=== PATIENT | female | born 1985 | race Caucasian/White ===

== ENCOUNTER 2024-10-16 12:35 | Emergency (ER) | payer BC, SELFPAY ==
--- OUTSIDE RECORDS SUMMARY | 2024-10-16 12:38 | XMS_ITS | Clinical Summary ---
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 Gender Identity Not on file Sexual Orientation Not on file Plan of Treatment Health Maintenance Due Date Last Done Comments Cervical Cancer Screening Pa p Smear (Age 30 to 64) Every 3 Years 1986 Annual Physical 1989 Hepatitis C 2004 DTaP, Tdap and Td Vaccines ( 1 - Tdap) 2005 Hepatitis B Vaccines (1 of 3 - 19+ 3-dose series) 2005 Cervical Cancer Screening Pa p with HPV Testing (Age 30 to 64) Every 5 Years 2016 Cervical Cancer Screening with HPV 2016 COVID-19 Vaccine ( - 2023-2 5 season) 2024 Influenza Adult (#1) 2024 HPV Vaccines Aged Out No longer eligi ble based on patient's age to complete this topic Meningococcal B Vaccine Aged Out No l onger eligible based on patient's age to complete this topic Meningococcal Vaccine Aged Out No janee lee ann eligible based on patient's age to complete this topic Pneumococcal Vaccine: Pediat rics (0 to 5 Years) and At-Risk Patients (6 to 64 Years) Aged Out No longer eligible b ased on patient's age to complete this topic RSV Immunizations Under 20 Months Aged Out No longer eligible based on patient's age to complete this topic
--- OUTSIDE RECORDS SUMMARY | 2024-10-16 12:38 | XMS_ITS | Clinical Summary ---
Author Organization [facility] Address [address] [place] [address] Care Team Providers Care Payroll Consultant Name Role Phone Shu Ho MD Primary Care Provider [phone] Source Comments [facility],non-owned Affiliates and Associated Physician Practices is amultiple site organization consisting of ambulatory clinics and hospital sitesin [place], [place], [place] and [place]. This disclosure is being madepursuant to the Care Everywhere program and may not contain all information available regarding this patient. Last updated 18.[facility] Allergies Active Allergy Reactions Criticality Noted Date Comments Tramadol Nausea and/or Vomiting,Dizziness 02/2020 Social History Tobacco Use Types Packs/Day Years Used Date Smoking Tobacco: Never Assessed Sex and Gender Information Value Date Recorded Sex Assigned at Not on file Gender Identity Not on file Sexual Orientation Not on file Plan of Treatment Health Maintenance Due Date Last Done Comments PAP SMEAR 1986 HIV SCREENING 2001 HEPATITIS C SCREENING 08/30/2004 DTAP/TDAP/TD VACCINES (1 - Tdap) 2005 HEPATITIS B VACCINE (1 of 3 - 19+ 3-dose series) 2005 COVID-19 VACCINE ( - 2023-2 5 season) 2024 INFLUENZA VACCINE (#1) 2024 DEPRESSION SCREENING 09/07/2024 ZOSTER VACCINE (1 of 2) 2036 HIB VACCINE Aged Out No longer eligi ble based on patient's age to complete this topic HPV VACCINE Aged Out No longer eligi ble based on patient's age to complete this topic MENINGOCOCCAL (Group B) VACCINE Aged Out No longer eligible based on patient's age to complete this topic MENINGOCOCCAL VACCINE Aged Out No janee lee ann eligible based on patient's age to complete this topic PNEUMOCOCCAL VACCINE Aged Out No long er eligible based on patient's age to complete this topic Care Teams Payroll Consultant Relationship Specialty Start Date End Date Shu Ho MD [address] [phone] PCP - General Internal Medicine 09/12/19
--- OUTSIDE RECORDS SUMMARY | 2024-10-16 12:38 | XMS_ITS | Patient Health Summary ---
Author Organization [facility] Address [address] [facility] [place] [address] Care Team Providers Care Gift Manager Name Role Phone Shu Ho MD Primary Care Provider [phone] Note from [facility],non-owned Affiliates and Associated Physician Practices is amultiple site organization consisting of ambulatory clinics and hospital sitesin [place], [place], [place] and [place]. This disclosure is being madepursuant to the Care Everywhere program and may not contain all information available regarding this patient. Last updated 18.[facility] [employer] Allergies * Tramadol(Nausea and/or Vomiting,Dizziness) Social History Tobacco Use Types Packs/Day Years Used Date Smoking Tobacco: Never Assessed Sex and Gender Information Value Date Recorded Sex Assigned at Not on file Gender Identity Not on file Sexual Orientation Not on file Procedures * SKIN TEST PPD - POINT OF CARE(Performed 09/12/2019) Performed for Encounter for PPD test Results * SKIN TEST PPD - POINT OF CARE (09/12/2019) PPD 0 mm Comment:negative Other MISCELLANEOUS SAMPLE S / Unknown 09/12/2019 Kerry Moura [employer] [employer] [facility] [facility] - POINT OF CARE ORDERABLES Care Teams Gift Manager Relationship Specialty Start Date End Date Shu Ho MD [address] [place] [phone] PCP - General Internal Medicine 09/12/19
--- OUTSIDE RECORDS SUMMARY | 2024-10-16 12:38 | XMS_ITS | Data Portability ---
Author Organization [facility], [address]rology ([place]) Address [address] 4th [place] [address] Assessment Encounter Date Assessment Date Assessment LastModified by Organization Details LastModified Time 01/26/2024 01/26/2024 HISTORY OF PRESE NT ILLNESS: Edna is a 38-year-old [address] Dominique her presents the office today for a followup visit. Her menstrual cycles have been spacing out starting August of 2023 where they will be every 2 to 6 months. [address] saw Dr[address] Dominique for her annual in May, she was counseled on the importance of cycling out every 3 months to decrease her risk of endometrial hyperplasia and cancer. At that time she had a negative urine test, normal TSH, FSH, and prolactin levels. She had gained weight secondary to stress in her life and her father passing away. She has gained 40 pounds since November of 2022. She is sexually active and using condoms. She is not wanting any hormonal intervention and is diligent about using the condoms. We discussed her weight most likely being the cause of a cycle irregularity. She cycled out on Provera 01/03 and her menstrual cycle lasted 7 days. She has had to cycle out on the Provera in May, August, and December. In December prior to the Provera, I did check a quantitative HCG which was negative. She has had a recent TSH level drawn in January which was normal. Her CMP is normal as well as her lipid panel. She does see her primary care provider and nurse practitioner at Dr. Balderas s office. She would like to start back on spironolactone which she had been on in the past and works well for her cystic acne that she gets prior to her menses. She knows to be diligent about using condoms with this as it does cause defects. She is going to discuss with Dr. Balderas starting on Wegovy. It was a conversation they had had several months ago but her insurance did not cover it but since then she has changed insurances. She is trying to drink water, eat healthy, and exercise. REVIEW OF SYSTEMS: CONST: No fevers or chills. RESP: No shortness of breath. CV: No chest pain. GI: No nausea, vomiting, or diarrhea. SKIN: No rash. Reviewed pertinent past medical history, surgical history, family history, social history. No changes except as noted. PHYSICAL EXAMINATION: CONST: No acute distress. ENT: Neck supple, thyroid normal size, no nodules, without lymphadenopathy. RESP: Breathing appears normal. No use of accessory muscles. Clear to auscultation bilaterally. CV: Regular rate and rhythm without murmur. MSK: Extremities appear normal and without edema. SKIN: Warm and dry. No obvious skin lesions seen on exposed areas. PSYCH: Appropriate mood and affect. NEURO: No speech difficulty. Reviewed pertinent diagnostic tests, lab work, and imaging. These were reviewed with the patient. PLAN OF CARE: I am going to go ahead and send in Provera for her to take every 3 months if no menstrual cycle to decrease the risk of endometrial hyperplasia and malignancy. Recommended taking a urine test prior to. Counseled on the importance of using condoms while she is on the spironolactone and possibly starting the Wegovy. Encouraged weight loss, healthy eating, exercise. She is comfortable with this plan of care. [facility] [email or web address] Not available 01/27/2024 07:58:21 05/16/2024 05/16/2024 HISTORY OF PRESE NT ILLNESS: Edna is a 38-year-old [address] Dominique who presents to the office today for her woman's health exam. She is engaged to be in January. She is due for her Pap smear today. She has gained a significant amount of weight due to stress that she has had in her life. She has been working at trying to get her weight off with mindful eating. She is going to be started on a compounded tirzepatide due to her insurance not covering the name brand. This is managed by a physician. Her BMI is 49.86. Her weight has impacted her menstrual cycles to be irregular over the past couple of years where she has to take Provera to induce a menses. She did have a menses on her own this month that lasted a couple of days and light in flow. Her and her significant other prefer to use condoms. She knows the importance as she is on spironolactone 25 mg which could potentially cause defects. She also takes valacyclovir for HSV-2. She is also taking vitamin B and vitamin D. She has a negative depression screen. She has a negative HBOC. She is due for a Pap smear. She has no breast or gynecology complaints today. REVIEW OF SYSTEMS: CONST: No fevers or chills. RESP: No shortness of breath. CV: No chest pain. GI: No nausea, vomiting, or diarrhea. SKIN: No rash. Reviewed pertinent past medical history, surgical history, family history, social history. No changes except as noted. PHYSICAL EXAMINATION: CONST: No acute distress. ENT: Neck supple, thyroid normal size, no nodules, without lymphadenopathy. RESP: Breathing appears normal. No use of accessory muscles. Clear to auscultation bilaterally. CV: Regular rate and rhythm without murmur. GI: Abdomen non-distended, soft and nontender. No hepatosplenomegaly or masses. : Pelvic: No inguinal lymphadenopathy. External genitalia is normal and without lesions. There was no evidence of swelling in the labia. The urethral meatus and urethra are normal. Vagina is without lesions. The cervix is pink and non-friable. No cervical motion tenderness. The uterus is normal size, freely mobile. There is no adnexal enlargement or tenderness noted. Palpation of the bladder revealed no abnormalities. Pap smear collected. BREAST: Symmetric bilaterally. No dimpling of the skin is noted. There are no discrete masses palpated. There is no axillary lymphadenopathy. No retraction of the nipples or nipple discharge noted. MSK: Extremities appear normal and without edema. SKIN: Warm and dry. No obvious skin lesions seen on exposed areas. PSYCH: Appropriate mood and affect. NEURO: No speech difficulty. Reviewed pertinent diagnostic tests, lab work, and imaging. These were reviewed with the patient. PLAN OF CARE: 1. Pap smear guidelines discussed. We will follow up on Pap smear results. 2. Self-breast exam instructions reviewed. 3. Monthly self-breast awareness assessment encouraged. Recommend calling if any changes or concerns. Lifestyle interventions that can help decrease lifetime risk of breast cancer include a low inflammatory diet such as the Mediterranean diet, no smoking, one alcohol beverage a night or less, exercise, and healthy weight BMI less than 25. 4. Healthy diet and exercise was encouraged. 5. Contraceptive options discussed. Pharmaceutical intervention is strongly advised as she is on spironolactone which has been proven to cause defects. She knows to call if she goes 3 months without having a menstrual cycle and we will check a test and the importance of cycling out on the Provera for a withdraw bleed as she can be at increased risk for endometrial hyperplasia or uterine cancer if not having regular menstrual cycles. She is not interested in pharmaceutical intervention at this time. 6. Follow-up with PCP for any non-gynecological issues. 7. She is encouraged to update her non-gynecological preventative screenings and immunizations with her PCP. 8. Patient will return in one year or sooner if needed. cb [email or web address] Not available 05/18/2024 11:48:53 Plan of Treatment Reminders Order Date Submit Date Provider Last Modified By Organization Details Last Modified Time Details Appointments Annual [facility] Visit 30.EST 2024 10:30A M Duran Avila Not available Not available Not available Lab Pap test, slide(s), cervical - LMP 05/09/20242023 024 [id number] [facility], [address] [place] [address], [address], 06/20/2024 09:34:19 Referral None recorded. Procedures None recorded. Surgeries None recorded. Imaging None recorded. Medication Orders None recorded. Patient TargetsNo targets recorded. Patient InstructionsNo instructions recorded. Reason for Referral None Reported. Results Created Date Observation Date Name Description Value Unit Range Abnormal Flag Note LastModifiedBy Organization Detail LastModifiedTime 01/08/20 24 01/08/2024 vitam in D, 25-hy droxy , total , serum vitamin D 25-hydroxy 25 NG/mL 30.0-1 00.0 low vitam in D statu s 25 (oh) vitam in D indra ntrat ion range (NG/m L) ----- ----- ----- - ----- ----- ----- ----- ----- ----- -- defic ient <20 insuf ficie nt 20 to 29 suffi cient 30 to 100 upper safet y limit >100 ----- 25.0 Not Available [facility] - All Sites [address], [place], [address], 09/07/2024 00:16:42 01/08/2001/08/2024 vitam in B12, serum vitamin B12 202 pg/mL >=200 misael l value - great er than 200 pg/mL . indet ermin ate - 160 to 200 pg/mL . defic ient - less than 160 pg/mL . ----- 202 Not Available DO Not Use (Dmoinique Sena) - Testing [address] , [place], [address], 09/07/2024 00:16:42 01/08/20 24 01/08/2024 TSH, serum or plasm a TSH 1.47 uIU/m L 0.45-5 .33 test resul ts must BE inter prete d in the clini renay jem xt of the [facility] nt. the liste d refer ence range IS based on the gener al lyssamj ation ( males and non-p regna nt femal es, aged 21-88 ). refer ence range alicia bustamante on 2017 ----- 1.47 Not Available Harriett Dash MD [address] [place], [address], 09/07/2024 00:16:42 01/08/20 24 01/08/2024 lipid panel , serum cholesterol 146 mg/dL <=199 inter preti ve data for stephanie stero l, serum : <200 mg/dL hao able 200 - 239 mg/dL donna garibayine high >240 mg/dL high ----- 146 Not Available [facility] [address] [facility] , [place], [address], 09/07/2024 00:16:41 01/08/20 24 01/08/2024 lipid panel , serum triglyceride s 118 mg/dL 10-160 the natio nal lipid assoc iatio n and the natio nal stephanie stero l educa tion progr am (ncep ) have set the follo wing guide lines for trigl yceri letty in adult s ages 18 and up: trigl yceri letty (fast ing) misael l: <150 mg/dL borde rline high: 150-1 99 mg/dL high: 200-4 99 mg/dL very high: > or =500 mg/dL ----- 118 Not Available [facility] [address] [facility] [place], [address], 09/07/2024 00:16:41 01/08/20 24 01/08/2024 lipid panel , serum HDL 48 mg/dL 23-92 if HDL IS less than 40 mg/dL for men and less than 50 mg/dL for women , there IS an incre ased risk of heart disea se that IS indep endan t of other risk facto rs. A typic al level of HDL IS betwe en 40 - 50 mg/dL for men and betwe en 50 - 60 mg/dL for women and IS assoc iated with avera ge risk of heart disea se. based on many epide [facility] studi es, HDL of 60 mg/dL or highe r IS assoc iated with less than avera ge risk of heart disea se. ----- 48 Not Available [facility] [address] [facility] [place], [address], 09/07/2024 00:16:41 01/08/20 24 01/08/2024 lipid panel , serum LDL, calculated 74 mg/dL < 100 mg/dL optim al 100-1 29 mg/dL near optim al 130-1 59 mg/dL borde rline high 160-1 89 mg/dL high > or = 190 mg/dL very high ----- 74 Not Available [facility] [address] [facility] [place], [address], 09/07/2024 00:16:41 01/08/20 24 01/08/2024 lipid panel , serum VLDL 24 mg/dL 0-31 Not Available [facility] [address] [place] [address] [place], [address], 09/07/2024 00:16:41 01/08/20 24 01/08/2024 lipid panel , serum chol/HDL 3.04 ch/HD L 0.00-4 .44 Not Available [facility] [address] [facility] [place], [address], 09/07/2024 00:16:41 01/08/20 24 01/08/2024 lipid panel , serum LDL renay. / HDL ratio 1.5 0.0-5. 0 Not Available [facility] [address] [place] [address] [place], [address], 09/07/2024 00:16:41 01/08/20 24 01/08/2024 insul in, serum insulin 6.6 uIU/m L 1.9-23 .0 this test IS not recom yony d for patie nts with a posit juan f insul in autoa ntibo dy. free insul in IS the test of choivioleta e when the patie nt?s anti- insul in IS posit juan f. ----- 6.6 Not Available [facility] [address], [place], [address], 09/07/2024 00:16:40 01/08/2001/08/2024 HbA1c (hemo globi n A1c), blood hemoglobin A1C 5.2 %A1C 4.2-5. 6 refer ence range for HbA1C IS emmett ws: rohit sted diagn osis HbA1C resul t(%) ----- ----- ----- ----- ----- ----- ----- ----- --- diabe tic > or equal to 6.5 predi abete s 5.7 - 6.4 misael l <5.7 refer ence: nancy can diabe ashly assoc iatio n. class ifica tion and diagn osis of diabe ashly. diabe ashly care 2017; 40 (supp lemen t 1): S11-S 24. ----- 5.2 Not Available Test [facility] - Lab [address] [place] [address], [address], 09/07/2024 00:16:40 01/08/20 24 01/08/2024 HbA1c (hemo globi n A1c), blood estimated average glucose 103 mg/dL Not Available Test [facility] - Lab [address] [place] [address], [address], 09/07/2024 00:16:40 01/08/20 24 01/08/2024 GFR, estim ated (eGFR ), serum eGFR 84 mL/mi n/1.7 3m2 this eGFR IS calcu lated using the 2020 CKD-e pi creat inine equat ion witho ut race modif ier. in most healt hy peopl e, the misael l GFR IS 90 mL/mi n/1.7 3 m2 or highe r. A resul t of 60 - 89 mL/mi n/1.7 3 m2 witho ut kidne y damag e may BE misael l in some peopl e (such the elder ly, infan ts). A resul t of 60 - 89 mL/mi n/1.7 3 m2 for three month s or more, along with kidne y damag e (such persi stent prote in in the urine ), means the perso n has early kidne y disea se. when GFR IS <60 for three month s or more, chron ic kidne y disea se(CK D) IS prese nt. ----- 84 Not Available Lab [address], [place], [address], 09/07/2024 00:16:40 01/08/20 24 01/08/2024 corti sanchez, serum or plasm a cortisol 6.4 mcg/d L 8.7-22 .4 low corti sanchez refer ence range s: A.M. speci mens: 8.7 - 22.4 mcg/d L P.M. speci mens: < 10 mcg/d L dexam ethas one suppr essio n test expec neris value s: less than 5.0 mcg/d L cortr osyn (acth ) stimu latio n test: an incre ase of 10 mcg/d L or great er post- stimu latio n IS consi dered a misael l respo nse. ----- 6.4 Not Available [facility] [address], [place], [address], 09/07/2024 00:16:40 01/08/2001/08/2024 CBC w/ auto diff WBC 8.4 K/cum m 3.4-9. 4 Not Available [facility] [place] [facility] [address] [place] [facility] [place], [address], 09/07/2024 00:16:39 01/08/2001/08/2024 CBC w/ auto diff RBC 4.46 M/cum m 4.20-5 .40 Not Available [facility] [place] [facility] [address] [place] [facility] [place], [address], 09/07/2024 00:16:39 01/08/2001/08/2024 CBC w/ auto diff hemoglobin (HGB) 13.2 gm/dL 12.0-1 6.0 Not Available [facility] [place] [facility] [address] [place] [place], [address], 09/07/2024 00:16:39 01/08/2001/08/2024 CBC w/ auto diff hematocrit (HCT) 39 % 37-47 Not Available [facility] [place] [facility] [address] [place] [facility] [place], [address], 09/07/2024 00:16:39 01/08/20 24 01/08/2024 CBC w/ auto diff MCV 88 81-94 Not Available [facility] [place] [facility] [address] [place], [address], 09/07/2024 00:16:39 01/08/20 24 01/08/2024 CBC w/ auto diff MCH 29.6 pg 27.5-3 3.2 Not Available [facility] [place] [facility] [address] [place], [address], 09/07/2024 00:16:39 01/08/20 24 01/08/2024 CBC w/ auto diff RDW 13.3 % 11.7-1 5.5 Not Available [facility] [place] [facility] [address] [place], [address], 09/07/2024 00:16:39 01/08/20 24 01/08/2024 CBC w/ auto diff MCHC 33.7 g/dL 31.0-3 6.0 Not Available [facility] [place] [facility] [address] [place], [address], 09/07/2024 00:16:39 01/08/20 24 01/08/2024 CBC w/ auto diff plt 245 K/cum m 140-41 0 Not Available [facility] [place] [facility] [address] [place], [address], 09/07/2024 00:16:39 01/08/20 24 01/08/2024 CBC w/ auto diff MPV 10 mL Not Available [facility] [place] [facility] [address] [place], [address], 09/07/2024 00:16:39 01/08/20 24 01/08/2024 wbc diff, auto, blood rubi% 59 % 47-67 Not Available [facility] [address], [place], [address], 09/07/2024 00:16:39 01/08/20 24 01/08/2024 wbc diff, auto, blood lym% 27 % 25-45 Not Available [facility] [address], [place], [address], 09/07/2024 00:16:39 01/08/20 24 01/08/2024 wbc diff, auto, blood mono% 7 % 1-9 Not Available [facility] [address], [place], [address], 09/07/2024 00:16:39 01/08/20 24 01/08/2024 wbc diff, auto, blood eos% 8 % 0-6 high Not Available [facility] [address], [place], [address], 09/07/2024 00:16:39 01/08/20 24 01/08/2024 wbc diff, auto, blood baso% 0 % 0-2 Not Available [facility] [address], [place], [address], 09/07/2024 00:16:39 01/08/20 24 01/08/2024 wbc diff, auto, blood abs rubi 4.9 K/cum m 1.8-6. 5 Not Available [facility] [address], [place], [address], 09/07/2024 00:16:39 01/08/20 24 01/08/2024 wbc diff, auto, blood abs lym 2.2 K/cum m 0.9-3. 0 Not Available [facility] [address], [place], [address], 09/07/2024 00:16:39 01/08/20 24 01/08/2024 wbc diff, auto, blood abs mono 0.5 K/cum m 0.2-0. 8 Not Available [facility] [address], [place], [address], 09/07/2024 00:16:39 01/08/20 24 01/08/2024 wbc diff, auto, blood abs eos 0.7 K/cum m 0.0-0. 4 high Not Available [facility] [address], [place], [address], 09/07/2024 00:16:39 01/08/2001/08/2024 wbc diff, auto, blood abs baso 0.0 K/cum m 0.0-0. 2 Not Available [facility] [address], [facility] [place], [address], 09/07/2024 00:16:39 01/08/20 24 01/08/2024 CMP, serum or plasm a sodium 139 mmol/ L 136-14 5 Not Available Not Available 09/07/2024 00:16:38 01/08/2001/08/2024 CMP, serum or plasm a potassium 4 mmol/ L 3.5-5. 1 Not Available Not Available 09/07/2024 00:16:38 01/08/2001/08/2024 CMP, serum or plasm a chloride 103 mmol/ L 98-107 Not Available Not Available 09/07/19 00:16:38 01/08/2001/08/2024 CMP, serum or plasm a CO2 28 mmol/ L 21-31 Not Available Not Available 09/07/19 00:16:38 01/08/2001/08/2024 CMP, serum or plasm a glucose 85 mg/dL 70-105 Not Available Not Availa ble 09/07/2024 00:16:38 01/08/2001/08/2024 CMP, serum or plasm a BUN 14 mg/dL 7-25 Not Available Not Availa ble 09/07/2024 00:16:38 01/08/2001/08/2024 CMP, serum or plasm a creatinine 0.9 mg/dL 0.6-1. 3 Not Available Not Available 09/07/2024 00:16:38 01/08/2001/08/2024 CMP, serum or plasm a calcium 9.1 mg/dL 8.6-10 .3 Not Available Not Available 09/07/2024 00:16:38 01/08/2001/08/2024 CMP, serum or plasm a total protein 7 gm/dL 6.0-8. 3 Not Available Not Available 09/07/2024 00:16:38 01/08/2001/08/2024 CMP, serum or plasm a albumin 4.3 gm/dL 3.5-5. 7 Not Available Not Available 09/07/2024 00:16:38 01/08/20 24 01/08/2024 CMP, serum or plasm a ALP 71 IU/L 34-104 Not Available Not Availa ble 09/07/2024 00:16:38 01/08/20 24 01/08/2024 CMP, serum or plasm a AST/SGOT 10 IU/L 13-39 low Not Available Not Avail able 09/07/2024 00:16:38 01/08/20 24 01/08/2024 CMP, serum or plasm a total bili 0.7 mg/dL 0.3-1. 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 Perfo rmed at: [facility] Order ing Provi brenda: Duran Avila nt Name: EDNA KELSEY Acces levi #: [id number] /A ge/Ge nder: [birth year] (Age: 38) / F Proce dure Date: 024 SP ECIME N RECEI SHANDA * SureP ath HPV DNA with Pap, Cervi renay/E ndoce rvica l Speci men Adequ acy Satis facto ry for evalu ation Endoc ervic al cell/ trans forma tion zone compo nent prese nt Cytol ogic Diagn osis Negat juan f for intra epith elial lesio n or malig nereida Funga l organ isms morph ologi madhavi consi stent with Lisette da speci es VM EL ECTRO NICAL LY VERIF IED BY SARAH CROOKS, SCT([facility])* 2023 08:10 HPV Testi ng Date Order ed: 2023 Date Repor neris: 2023 11:56 Inter preta tion NEGAT JUAN F for high risk types of HPV Test Infor matio n Human Papil lomav irus (HPV) testi ng perfo rmed using the [facility] aamir 4800 HPV Test ([facility], [place] , [place] ). The aamir HPV Test is a polym erase chain react ion (PCR) -base d DNA ampli ficat ion test that simul taneo usly ident ifies a leblanc d resul t for 12 HR HPV types (HPV- 31, 33, 35, 39, 45, 51, 52, 56, 58, 59, 66 and 68) and indiv idual resul ts for HPV-1 6 and HPV-1 8. High Risk HPV types are assoc iated with cervi renay carci noma and its predi sposi ng lesio ns: cervi renay atypi a and high grade squam ous intra epith elial lesio n (mode rate and sever e dyspl eduin, carci noma in situ/ [place]UST[place] 2 and [place] 3). The U.S. Food and Drug Admin istra tion (FDA) has appro shanda this test for use with SureP ath speci mens. The perfo rmanc e verona cteri stics of this test were verif ied by the [facility] ([facility] [place], [place] [facility] is autho rized under Clini renay Labor atory Impro vemen t Amend ments (CLIA ) to perfo rm high- compl exity testi ng. Recom menda tion The Ameri can Cance r Socie ty (ACS) , Ameri can Socie ty for Colpo scopy and Cervi renay Patho logy (ASCC P), and Ameri can Socie ty for Clini renay Patho logy (ASCP ) recom mends that women who recei ve negat juan f resul ts on both tests shoul d be rescr eened no more frequ ently than every five years . HPV DNA posit juan f, cytol ogy negat juan f women shoul d be follo wed conse rvati vely repea ting BOTH tests in 12 month s. HPV-n egati ve ASC-U S shoul d be rescr eened with co-te sting in 3 years . All other Pap test inter preta tions shoul d be follo wed accor ding to ASCCP Conse nsus Guide lines for that parti cular inter preta tion. HPV testi ng is order ed as part of refle x testi ng as indic ated by the requi sitio n order and/o r as a resul t of addit ional testi ng reque sts submi tted by the physi ludwin. EL ECTRO NICAL LY VERIF IED BY DEWAYNE DE LOS SANTOS( CP) * 2023 11:56 CL INICA L/MEN STRUA L HISTO RY LMP: 4 Menst rual Hx: Irreg ular cycli ng Other Clini renay Condi tions : ICD-1 0 Code: z12.4 The Pap test is a scree giana test for uteri ne cervi renay cance r with an inher ent, but low false negat juan f rate. A biops y is recom yony d for any suspi cious or visib le lesio n. The patie nt shoul d be remin ded to consu lt a gynec ologi c care provi brenda if they exper ience any suspi cious signs or sympt oms regar dless of the Pap test resul t. END OF REPOR T Not Available Ut Only - [facility] [address] [facility], [place], [address], 05/20/2024 12:57:42 Result Notes None recorded. Problems Name Problem SNOMED Code Status Onset Date Resolution Date Notes Provider Name and Address Organization Details Recorded Time Herpes simplex 27020135 Active 2023 Duran Avila APRN, SOFTWARE QUALITY SPECIALIST [address] [place] [address], [phone], [facility] 4 12:54:09 Body mass index 30+ - obesity 699394498 Active 2023 Rocio Grant [facility] 4 22:37:01 Body mass index 40+ - severely obese 533894963 Active 2023 [place] Rudy [facility] 4 22:37:42 Candidiasis of vagina 08356479 [facility] 2023 [place] [facility] 4 16:08:16 Cystic acne 36177870 Active 2023 Duran Avila APRN, SOFTWARE QUALITY SPECIALIST [address] [place] [address], [phone], [facility] 4 12:59:49 Oligomenorrhea 52563072 Active 2023 Duran Avila APRN, SOFTWARE QUALITY SPECIALIST [address] [place] [address], [phone], [facility] 4 13:01:59 Irregular periods [id number] Active 2023 Rocio Grant [facility] 4 19:15:12 Problem Notes None recorded. Procedures Surgical History Date Name Laterality Status Provider Name and Address Organization Details Recorded Time 08/22/20 19 Date of Last Pap Smear completed Juancho Welch [facility] 05/16/2024 12:48:42 Colonoscopy with biopsy completed Not Available Health Note 05/10/2024 22:04:10 Imaging Results None recorded. Procedure Notes None recorded. Medical Equipment None Reported. Allergies Allergen ID Allergen Name Allergen Category Reaction Reaction Severity Criticality Documentation Date Start Date Code Code System Note Provider Name and Address Organization Details Recorded Time [id number] tramadol hydrochlo ride medicatio n dizziness Not available Not available 10/05/20232014 74280 RxNorm React ion: Dizzi ness; Nause a; Not Available Not Available Not Available Medications Name Sig Start Date Stop Date Status Note LastModified by Organization Details LastModified Time medroxyprog esterone 10 mg tablet PLEASE SEE ATTACHED FOR DETAILED DIRECTION S active Not Available Not Available No t Available fluconazole 150 mg tablet Take 1 tablet now and again in 3 days 2023 active Not Available Not Available Not Avai lable valacyclovi r 1 gram tablet TAKE 1 TABLET BY MOUTH ONCE DAILY FOR 5 DAYS NEEDED FOR OUTBREAKS 01/25 completed Not Available Not Available Not Available metronidazo le 500 mg tablet TAKE 1 TABLET BY MOUTH EVERY 12 HOURS FOR 7 DAYS 01/25 completed Not Available Not Available Not Available valacyclovi r 500 mg tablet Take 1 tablet every day by oral route for 90 days. 2023 active Not Available Not Available Not Avai lable spironolact one 25 mg tablet TAKE 1 TABLET EVERY 12 HOURS BY ORAL ROUTE DIRECTED FOR 30 DAYS, FOR ACNE. 2023 active Not Available Not Available Not Avai lable oseltamivir 75 mg capsule TAKE ONE CAPSULE BY MOUTH TWICE DAILY 01/25 completed Not Available Not Available Not Available norethindro ne (contracept juan f) 0.35 mg tablet TAKE 1 TABLET BY MOUTH DAILY 01/25 completed Not Available Not Available Not Available spironolact one DOSE UNNKOWN active Not Available Not Available No t Available Vitals Date Recorded Body weight Systolic blood pressure Diastolic blood pressure Provider Name and Address Organization Details Last Updated DateTime 01/26/2024 329741.31 g 126 mm[Hg] 88 mm[Hg] Jennifer Seals [facility] 01/26/2024 12:12:04 Date Recorded Body weight Systolic blood pressure Diastolic blood pressure Provider Name and Address Organization Details Last Updated DateTime 05/16/2024 219710.4 g 118 mm[Hg] 74 mm[Hg] Juancho Welch [facility] 05/16/2024 12:48:22 Social History Question Answer Notes LastModified by Organizat ion Details LastModified Time Tobacco Smoking Status Never Smoker Not Available Health Note 05/10/2024 22:04:10 Do You Have An Advance Directive? No [email or web address] Information not available 05/10/2024 What Is Your Level Of Alcohol Consumption? Occasional [email or web address] Information not available 05/10/2024 How Many Times Per Week Do You Consume Alcohol? Less Than 1 Time Per Week [email or web address] Information not available 05/10/2024 What Is Your Level Of Caffeine Consumption? Moderate [email or web address] Information not available 05/10/2024 Are You Currently Employed? Yes [email or web address] Information not available 05/10/2024 Which Illicit Or Recreational Drugs Have You Used? 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 Less Than 1 Time Per Week [email or web address] Information not available 05/10/2024 Do You Have A Medical Power Of Salesperson Fashion Accessories? No [email or web address] Information not available 05/10/2024 What Was The Date Of Your Most Recent Tobacco Screening? 05/16/2024 [email or web address] Information not available 05/10/2024 What Is Your Relationship Status? Domestic Partner [email or web address] Information not available 05/10/2024 Do You Use Any Illicit Or Recreational Drugs? Yes [email or web address] Information not available 05/10/2024 Sex: Unknown Functional Status Question Answer Note LastModified by Organizat ion Details LastModified Time What is your exercise level? Occasional [email or web address] Information not available 05/10/2024 Mental Status None recorded. Family History Relationship Description Onset Age of this Age Resolved Age Notes LastModified by Organization Details LastModified Time Maternal Grandmother Blood coagulation disorder [email or web address] Not available 2023 22:04:09 Maternal Grandfather Family history of malignant neoplasm [email or web address] Not available 2023 22:04:09 Father Diabetes mellitus [email or web address] Not available 2023 22:04:09 Paternal Grandfather Heart disease [email or web address] Not available 2023 22:04:09 Paternal Grandmother Heart disease [email or web address] Not available 2023 22:04:09 Medical History Condition Response Diabetes N Anxiety Disorder N Bleeding Disorder N Attention-deficit Hyperactivity Disorder N High Blood Pressure N Arthritis N Hyperlipidemia N Cancer N Stroke N Thyroid Problems N Asthma N Depression N COPD N Anemia N Seizures N Heart Disease N Fibromyalgia N Osteoporosis N Kidney Disease N Gynecological History Statement/Question Response Menses Monthly N Date of Last Pap Smear 08/22/2019 Date of LMP 05/09/2024 Obstetrics History GPAL:G 0 P 0 0 0 0 Past Encounters Encounter ID Performer Location Encounter Start Date Encounter Closed Date Diagnosis/Indication Diagnosis SNOMED-CT Code Diagnosis ICD10 Code Diagnosis Note [id number] Christiana Dominique MD [address] [facility] ([place]) [address] [place] [address] 01/26/2024 11:54:11 01/26/2024 14:01:47 Cystic acne 95292166 L70.0 Oligomenorrhea 92220067 N91.5 [id number] Christiana Dominique MD [address] [facility] [place] [address] [place] [address] 05/16/2024 12:08:52 05/16/2024 13:15:07 Cancer cervix screening status 361822688 Z12.4 Additional diagnosis detail: Screening for malignant neoplasm of cervix Body mass index 40+ - severely obese 029725408 E66.01 Z68.42 Additional diagnosis detail: Obesity, morbid, BMI 40.0-49.9A dditional diagnosis detail: BMI 45.0-49.9, adult Health Concerns Section Related Observation LastModified by Organization Detai ls LastModified Time None Recorded Concern Status LastModified by Organization Details LastModified Time None Recorded Advance Directives Directive N: Payers Encounter Date Sequence Insurance Name Policy Number Policy Neff Covered Member ID Neff Member ID Guarantor Name 01/26/2024 1 [employer] (MEDICARE REPLACEMENT HMO) [id number] Edna James [id number] Edna James 05/16/2024 1 [employer] (MEDICARE REPLACEMENT HMO) [id number] Edna Hernandezry [id number] Edna James OBGyn Episode No OBEpisode recorded.
--- OUTSIDE RECORDS SUMMARY | 2024-10-16 12:38 | XMS_ITS | Clinical Summary ---
Author Organization [facility] Address [address] [place] [address] Phone Care Team Providers Care Senior Marketing Specialist Name Role Phone Thiago Balderas DO Primary Care Provider [phone] Romero Perdomo MD Unavailable [phone] Allergies Active Allergy Reactions Criticality Noted Date Comments Tramadol Nausea Low 01/07/2021 Medications ACYCLOVIR PO Take 500 mg by mouth daily. Active spironolactone (ALDACTONE) 50 MG TabletIndications:A cne Vulgaris Take 50 mg by mouth daily. Indications: Common Acne Active HYDROcodone-acetami nophen (NORCO) 5-325 MG Tablet Take 1-2 Tablets by mouth every 6 hours as needed for Mild or more severe pain. 8 Tablet 021 Active pantoprazole (PROTONIX) 20 MG Tablet Delayed ResponseIndications :Symptomatic Gastroesophageal Reflux Disease (Inactive) Take 1 Tablet by mouth daily. Indications: Gastroesophageal Reflux Disease with Current Symptoms 30 Tablet Active Lactobacillus (PROBIOTIC ACIDOPHILUS PO) Take by mouth. Active cetirizine (ZyrTEC Allergy) 10 MG Tablet Take 10 mg by mouth daily. Active Multiple Vitamin (MULTIVITAMIN PO) Take by mouth daily. Active clindamycin (CLEOCIN T) 1 % Lotion APPLY TO THE AFFECTED AREA ON FACE TWICE DAILY 01/30/2 021 Active triamcinolone (KENALOG) 0.1 % Cream 021 Active Active Problems Problem Noted Date Diagnosed Date Diverticulitis of large inte kanchan with perforation without bleeding 01/08/2021 Morbid obesity 01/08/2021 Social History Tobacco Use Types Packs/Day Years Used Date Smoking Tobacco: Never Smokeless Tobacco: Never Alcohol Use Standard Drinks/Week Comments Yes 0 (1 standard drink = 0.6 oz pur e alcohol) occasion Comments No Sex and Gender Information Value Date Recorded Sex Assigned at Not on file Legal Sex Female 3:06 PM CDT Gender Identity Not on file Sexual Orientation Not on file Last Filed Vital Signs Vital Sign Reading Time Taken Comments Blood Pressure 131/67 05/29/2021 8:57 AM CDT Pulse 70 05/29/2021 8:57 AM CDT Temperature 36.7 C (98 F) 05/29/2021 8:57 AM CDT Respiratory Rate 16 05/29/2021 8:57 AM CDT Oxygen Saturation 100% 05/29/2021 8:57 AM CDT Inhaled Oxygen Concentration - - Weight 135.2 kg (298 lb) 05/29/2021 8:57 AM CDT Height 177.8 cm (5' 10 ) 05/29/2021 8:57 AM CDT Body Mass Index 42.76 05/29/2021 8:57 AM CDT Plan of Treatment Health Maintenance Due Date Last Done Comments Hepatitis C Virus (HCV) Screening 1986 TdaP Immunization 1986 Hepatitis B Immunization (3 of 3 - 3-dose series) 02/02/1997 11/10/1996, 10/13/1996 Pap Smear 2007 Cervical Cancer Screening (CCS) 2016 HPV/Cotest 2016 Influenza Immunization (#1) 2024 06/20/2019, 1 SARS-COV-2 Immunization (3 - season) 2024 03/19/2021, 09/25/2020 Respiratory Syncytial Virus (RSV) Immunization (Adult) (1 - 1-dose 75+ series) 2061 DTaP/Tdap/Td Immunization Discontinued 2001, 06/24/1988, 12/14/1987, Additional history exists Meningococcal Immunization (ACWY) Aged Out No longer eligible based on patient's age to complete this topic Pneumococcal Immunization Combined Aged Out No longer eligible based on patient's age to complete this topic Rotavirus Immunization Aged Out No lo nger eligible based on patient's age to complete this topic Insurance [facility] MEDICAID [place] Advance Directives * Full Code (Latest Code Status on File) Date Activated Date Inactivated Comments 01/07/2021 8:36 PM 01/10/2021 2:47 PM CPR-Full Treat ment: FULL ARREST: Attempt Resuscitation/CPR wit intubation and mechanical ventilation. PRE-ARREST: Use entire range of life support measures to stabilize the patient. Care Teams Senior Marketing Specialist Relationship Specialty Start Date End Date Thiago Baldreas DO [address] [facility] [address] [place] [address] PCP - General Family Medicine 01/07/21 Romero Perdomo MD [address] [facility] [address] [place] [address] Consulting Physician General Surgery 01/23/21
--- OUTSIDE RECORDS SUMMARY | 2024-10-16 12:38 | XMS_ITS | Referral Summary ---
Author Organization [facility] [employer] Address [address] [facility] [place] [address] Care Team Providers Care Vp Integrity Name Role Phone Shu Ho MD Primary Care Provider [phone] Source Comments [facility] [employer],non-owned Affiliates and Associated Physician Practices is amultiple site organization consisting of ambulatory clinics and hospital sitesin [place], [place], [place] and [place]. This disclosure is being madepursuant to the Care Everywhere program and may not contain all information available regarding this patient. Last updated 18.[facility] [employer] Allergies Active Allergy Reactions Criticality Noted Date Comments Tramadol Nausea and/or Vomiting,Dizziness 02/2020 Social History Tobacco Use Types Packs/Day Years Used Date Smoking Tobacco: Never Assessed Sex and Gender Information Value Date Recorded Sex Assigned at Not on file Gender Identity Not on file Sexual Orientation Not on file Plan of Treatment Not on file Administered Medications Care Teams Vp Integrity Relationship Specialty Start Date End Date Shu Ho MD [address] [place] [id number] PCP - General Internal Medicine 09/12/19
[2024-10-16 14:28] LABS: EDCOVIDSCREEN Negative (Negative); EDINFLUASCREEN Negative (Negative); EDINFLUBSCREEN Negative (Negative)
--- NOTE | 2024-10-16 15:47 | ED.GENADULT ---
HPI - General Adult General Chief complaint: Upper Respiratory Infection Stated complaint: fever and respiratory issues Time Seen by Provider: 10/16/24 15:20 Source: patient and family Mode of arrival: ambulatory Limitations: no limitations History of Present Illness HPI narrative: Patient is here with symptoms starting at 3am today. Symptoms include cough, fever to 102.3, a little bit of congestion, headache, body aches, and feeling tired. She reports she does take tirzepitide, and had her injection on Thursday so she does have some nausea. She denies any vomiting or diarrhea. She has tried Mucinex today with Coricidin and vitamins for her symptoms with minimal relief. She has not taken Tylenol or ibuprofen today. All other systems reviewed and negative unless noted in HPI. Related Data Home Medications ?Medication ?Instructions ?Recorded ?Confirmed ?Last Taken ?Type spironolactone 25 mg tablet mg 10/16/24 Unknown History tirzepatide 2.5 mg/0.5 mL 2.5 mg subcut WEEKLY 10/16/24 Unknown History subcutaneous pen injector (Miguelunjaro) valacyclovir 500 mg tablet mg 10/16/24 Unknown History Allergies Allergy/AdvReac Type Severity Reaction Status Date / Time tramadol Allergy Dizziness Verified 10/16/24 15:45 Review of Systems Review of Systems: CONSTITUTIONAL: Reports fever and chills. Denies sweats. +feels tired EYES: Denies visual changes, redness, or discharge. ENT: Reports rhinorrhea and congestion. Denies sore throat or otalgia. CARDIOVASCULAR: Denies chest pain, palpitations, or edema. RESPIRATORY: Reports cough. Denies dyspnea. GASTROINTESTINAL: Denies abdominal pain, vomiting, or diarrhea. Reports nausea and decreased appetite, which may be related to tirzepatide. GENITOURINARY: Denies dysuria or hematuria. SKIN: Denies rash or itching. MUSCULOSKELETAL: Reports body aches. NEUROLOGIC: Denies numbness or weakness. Reports headache. PSYCHIATRIC: Denies anxiety or depression. All other systems reviewed are negative, except as documented in HPI. PMFSH Comments At time of signature, I have reviewed and agree with nursing past medical, surgical, social and family history unless otherwise noted. Please see nursing chart for further information. There is no relevant family history pertinent to the presenting complaint. Exam Narrative: GENERAL: This is a well-nourished, obese patient, in no apparent distress. She appears acutely ill. HEAD: normocephalic, atraumatic. EYES: Sclera clear/white. Vision is grossly intact. EARS: External ears normal, auditory canals clear and without drainage, TMs normal without perforation. Hearing grossly intact. NOSE: External nose normal, nares with redness and rhinorrhea. THROAT: Mucous membranes moist, posterior pharynx erythematous with no exudate or enlarged tonsils noted. NECK: Neck supple, non-tender without lymphadenopathy. CARDIOVASCULAR: Regular rhythm without murmurs, gallops, or rubs. RESPIRATORY: Clear to auscultation. Breath sounds equal bilaterally. No wheezes, rales, or rhonchi. SKIN: warm, Dry, intact with no suspicious lesions or rash, good texture and turgor. NEURO: awake, alert, and oriented to person, place and time. There were no obvious focal neurologic abnormalities. EXTREMITIES: No joint tenderness, effusion, or edema noted. Course Course Emergency Course: Patient is aware of diagnosis, understands and agrees to treatment plan. Anticipatory guidance was given. Patient agrees to follow-up as directed and is aware of reasons to seek care at the emergency department. Please be advised this is a medical document. It is intended for [id number] communication. It is written in medical language and may contain unfamiliar abbreviations or verbiage. Medical documents are intended to carry relevant information, facts as evident, and the clinical opinion of the practitioner at the time of the encounter. This report may have been done utilizing a voice recognition system. Attempts have been made to correct errors. However, there may be uncorrected grammatical, spelling, and recognition errors present. The file time of this note does not necessarily represent the time the patient was seen. Level of Care: Express Care Visit Medical Decision Making MDM Narrative Medical decision making narrative: Results of flu and COVID test reviewed with patient. Patient was negative for Flu and COVID. Discussed physical exam findings with patient and reviewed prescriptions. Advised supportive measures and reviewed signs and symptoms for patient to return to clinic or go to the ER. Patient verbalized understanding. Differential Diagnosis Differential Diagnosis: URI vs Flu VS COVID Lab Data Labs: Lab Results 10/16/24 Range/Units 14:26 POC Influenza A Ag Negative (Negative) POC Influenza B Ag Negative (Negative) POC SARS CoV-2 Ag Negative (Negative) Reviewed. Discharge Plan Discharge Clinical Impression: Upper respiratory infection Patient Disposition: Home, Self-Care Condition: Stable Instructions: Antibiotic Form, Upper Respiratory Infection (DC), Acute Nausea and Vomiting (DC) Additional Instructions: You were diagnosed today with an upper respiratory infection. Your flu and COVID tests were negative today. Continue with supportive care. Follow printed instructions and take medications as needed as prescribed. You may take Tylenol and ibuprofen as needed and also directed on the packaging. Follow-up with your primary care provider. Patient Language: [place] Sudanese Prescriptions: New ondansetron 4 mg tablet,disintegrating 4 mg PO Q6H PRN (Reason: nausea and vomiting) Qty: 10 0RF benzonatate 200 mg capsule 200 mg PO TID PRN (Reason: cough) Qty: 20 0RF No Action valacyclovir 500 mg tablet spironolactone 25 mg tablet Mounjaro 2.5 mg/0.5 mL pen injector 2.5 mg subcut WEEKLY Rx Instructions: for 4 weeks Follow-up/Referrals: Thiago Balderas [Other] Stand Alone Forms: Work/School Release IP Time of Disposition: 16:08
== END 2024-10-16 16:20 | disposition home or self-care (01) ==
PROVIDERS: Emergency Provider Nurse Practitioner
DX: J06.9 Acute upper respiratory infection, unspecified (principal); Z20.822 Contact with and (suspected) exposure to COVID-19
CPT/HCPCS: 87426; 87804; 99203; G0463